=== PATIENT | male | born 1945 | race Caucasian/White ===

== ENCOUNTER 2018-04-07 18:07 | Emergency (ER) | payer MEDICARE ==
--- NOTE | 2018-04-07 19:09 | ED ---
Complex/Multi-Sys Presentation - HPI Summary HPI Summary: The pt is a 73 y/o male accompanied by his son presenting [place] [facility] [place]/o L rib cage pain since 6 days ago when he slipped and fell on the ice. His son is mainly concerned about recent increased falls. He notes unstable gait, dehydration, bilateral pedal edema and confusion. The complained of a lot of pain tonight after which he was given Vicodin by his daughter to mild relief. Home Medications Medication Instructions Recorded Confirmed Type Levothyroxine TAB* [Synthroid 25 25 mcg PO DAILY 01/02/16 05/31/16 History MCG TAB*] Lisinopril [Lisinopril 20 MG-] 20 mg PO DAILY 01/02/16 05/31/16 History celeCOXIB CAP* [Celebrex CAP*] 200 mg PO DAILY 01/02/16 05/31/16 History Aspirin EC TAB* [Ecotrin EC Low 81 mg PO DAILY tab.ec 01/03/16 05/31/16 Rx Dose 81 MG*] Metoprolol Tartrate TAB* 50 mg PO Q12HR #60 tab 01/03/16 05/31/16 Rx [Lopressor TAB*] Ciprofloxacin TAB* [Cipro 500 MG 500 mg PO BID #20 tab 02/28/16 05/31/16 Rx TAB*] Citalopram TAB* [Celexa TAB*] 1 tab PO DAILY 04/26/16 05/31/16 History Cranberry Fruit Extract [Cranberry 1 tab PO DAILY 04/26/16 05/31/16 History Concentrate] Docusate CAP* [Colace Cap*] 1 tab PO DAILY 04/26/16 05/31/16 History Fexofenadine HCl 1 tab PO DAILY 04/26/16 05/31/16 History [place]-3/Dha/Epa/Fish Oil [Fish Oil 1 cap PO DAILY 04/26/16 05/31/16 History 1,000 mg Softgel] Tamsulosin CAP* [Flomax CAP*] 1 cap PO DAILY 04/26/16 05/31/16 History Vitamin E 1 cap PO DAILY 04/26/16 05/31/16 History - History Of Current Complaint Chief Complaint: EDChestWallPain Time Seen by Provider: 04/07/18 19:03 Hx Obtained From: Patient, Family/Striper - Son Onset/Duration: Gradual Onset, Still Present, Worse Since - Tonight Severity Currently: Moderate Severity Initially: Moderate Location: Pain At: - L ribs Associated Signs And Symptoms: Positive: Edema - Pedal, Other - unstable gait, dehydration and confusion - Allergies/Home Medications Allergies/Adverse Reactions: Allergies Allergy/AdvReac Type Severity Reaction Status Date / Time Sulfa (Sulfonamide Allergy Unknown Verified 04/07/18 18:14 Antibiotics) Reaction Details PMH/Surg Hx/FS Hx/Imm Hx Previously Healthy: No Endocrine/Hematology History: Reports: Hx Thyroid Disease Denies: Hx Diabetes Cardiovascular History: Reports: Hx Hypertension Respiratory History: Reports: Hx Seasonal Allergies History: Reports: Hx Benign Prostatic Hyperplasia - Reports diffculty empting entire bladder Musculoskeletal History: Reports: Hx Back Problems - Broke back 15 years ago after falling out of tree stand Sensory History: Reports: Hx Contacts or Glasses, Hx Hearing Problem Opthamlomology History: Reports: Hx Contacts or Glasses - Cancer History Cancer Type, Location and Year: 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 Respiratory: Other - Positive: L ribcage pain s/p a fall on ice All Other Systems Reviewed And Are Negative: Yes Physical Exam - Summary Physical Exam Summary: Appearance: The patient is well-nourished in no acute respiratory distress and in no acute pain. Skin: The skin is warm and dry and skin color reflects adequate perfusion. HEENT: The head is normocephalic and atraumatic. The pupils are equal and reactive. The conjunctivae are clear and without drainage. Nares are patent and without drainage. Mouth reveals moist mucous membranes and the throat is without erythema and exudate. The external ears are intact. The ear canals are patent and without drainage. The tympanic membranes are intact. Neck: The neck is supple with full range of motion and non-tender. There are no carotid bruits. There is no neck vein distension. Respiratory: Tender in the lower anterolateral chest. Lungs are clear to auscultation and breath sounds are symmetrical and equal. Cardiovascular: Heart is regular rate and rhythm. There is no murmur or rub auscultated. There is slight bilateral pedal edema. Pulses are symmetrical and equal. Abdomen: The abdomen is soft and non-tender. There are normal bowel sounds heard in all four quadrants and there is no organomegaly palpated. Musculoskeletal: There is no back tenderness noted. Extremities are non-tender with full range of motion. There is good capillary refill. There is slight bilateral pedal edema. No calf tenderness elicited. Neurological: Patient is alert and oriented to person, place and time. The patient has symmetrical motor strength in all four extremities. Cranial nerves are grossly intact. Deep tendon reflexes are symmetrical and equal in all four extremities. Psychiatric: The patient has an appropriate affect and does not exhibit any anxiety or depression. GCS:15 Triage Information Reviewed: Yes Vital Signs On Initial Exam: Initial Vitals Temp Pulse Resp BP Pulse Ox 98.3 F 71 16 116/80 95 04/07/18 18:10 04/07/18 18:10 04/07/18 18:10 04/07/18 18:10 04/07/18 18:10 Vital Signs Reviewed: Yes Diagnostics - Vital Signs Vital Signs Temp Pulse Resp BP Pulse Ox 04/07/18 18:10 98.3 F 71 16 116/80 95 - Laboratory Result Diagrams: 04/07/18 19:20 04/07/18 19:20 Lab Statement: Any lab studies that have been ordered have been reviewed, and results considered in the medical decision making process. - Radiology CXR Radiology Interpretation Completed By: ED Physician Summary of Radiographic Findings: IMPRESSION: No acute process. - CT Brain CT CT Interpretation Completed By: Radiologist Summary of CT Findings: IMPRESSION: No acute intracranial abnormality. Chronic microvascular ischemic changes. The ED physician reviewed this radiology report. - EKG 19:13 Cardiac Rate: Bradycardia - 58 bpm EKG Rhythm: Sinus Rhythm Complex Multi-Symp Course/Dx Course Of Treatment: Mr. Lopez was brought in by family as he fell on Sunday or Sunday and has continued to complain of pain in his left anterior chest. They noticed that the area is swollen. They're also concerned that he has been falling a lot recently. He was nontoxic in appearance and his vital signs are stable. He did have pinpoint pupils and they stated that his sister had given him one of her Vicodin earlier. He was mildly tender in the left anterior lower chest border. His lungs were clear. Chest x-ray was unremarkable as were labs. I recommended follow-up with his PCP and the use of ibuprofen. They felt that he needed something for pain and a prescription for tramadol was sent. - Diagnoses Provider Diagnoses: Chest wall pain Discharge - Sign-Out/Discharge Documenting (check all that apply): Patient Departure - DC - Discharge Plan Condition: Stable Disposition: HOME Prescriptions: traMADol TAB* [Ultram*] 50 mg PO Q6HR PRN #20 tab MDD 4 PRN Reason: Pain Patient Education Materials: Chest Wall Pain (ED) Referrals: Keke Montano [Primary Care Provider] - Additional Instructions: Follow up with your PCP in 2-3 days Return to ED for any new or worsening symptoms - Billing Disposition and Condition Condition: STABLE Disposition: Home - Attestation Statements Document Initiated by Timoteo[employer]: Yes Documenting Scribe: Kalpana Pimentel Provider For Whom Yan is Documenting (Include Credential): Dr. Kayden Santamaria MD Scribe Attestation: IKalpana , scribed for Dr. Kayden Santamaria MD on 04/07/18 at 2147. Scribe Documentation Reviewed: Yes Provider Attestation: The documentation as recorded by the Kalpana zarate accurately reflects the service I personally performed and the decisions made by me, Dr. Kayden Santamaria MD Status of Scribe Document: Viewed
[2018-04-07 19:31] LABS: ABS Basophils 0 10^3/ul (0-0.2); ABS Eosinophils 0.1 10^3/ul (0-0.6); ABS Lymphocytes 1.2 10^3/ul (1.0-4.8); ABS Monocytes 0.5 10^3/ul (0-0.8); ABS Neutrophils 4.1 10^3/ul (1.5-7.7); ABS Nucleated RBC 0 10^3/ul; Eosinophil % 0.9 %; Hematocrit 43 % (42-52); Hemoglobin 14.4 g/dl (14.0-18.0); Lymphocyte % 20.1 %; Mean Corpuscular HGB Conc 34 g/dl (31-36); Mean Corpuscular Hemoglobin 34 pg (27-31); Mean Corpuscular Volume 100 fL (80-94); Mean Platelet Volume 6.5 fL (7.4-10.4); Nucleated Red Blood Cells % 0.1; Platelet Count 146 10^3/ul (150-450); Red Blood Count 4.28 10^6/ul (4.00-5.40); Red Cell Distribution Width 14 % (10.5-15); White Blood Count 5.8 10^3/ul (3.5-10.8)
[2018-04-07 19:36] LABS: INR 1.02 (0.77-1.02)
[2018-04-07 19:49] LABS: EGFR Non-African American 95.9 (>60)
[2018-04-07 21:21] VITALS: BP 135/73
== END 2018-04-07 21:21 | disposition home or self-care (01) ==
LOC: ED 18:07
DX: R07.89 Other chest pain (principal); W19.XXXA Unspecified fall, initial encounter; Y92.9 Unspecified place or not applicable
CPT/HCPCS: 36415; 70450; 71046; 80053; 80320; 83605; 83735; 84443; 84484; 85025; 85610; 86140; 93005; 99283; G0480